=== PATIENT | male | born 2005 | race Two or more races ===

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

== ENCOUNTER 2023-01-15 20:47 | Emergency (ER) | payer MEDICAID ==
[~2023-01-15] VITALS: Ht 180.3 cm; Wt 121.0 kg
[~2023-01-15 20:47] MED LIST changes: +HYDR-4798 PO; +IBUP800T27 PO
[2023-01-15 21:12] VITALS: BP 139/80
[2023-01-15 22:33] LABS: Urine Bacteria FEW /hpf (None Seen); Urine Blood Negative /uL (Negative); Urine Mucus FEW (None Seen); Urine Specific Gravity 1.017 (1.001-1.035); Urine WBC 1 /hpf (0 - 3)
== END 2023-01-16 02:12 | disposition home or self-care (01) ==
LOC: ER 20:51
DX: E86.0 Dehydration (principal); R39.15 Urgency of urination; Z79.1 Long term (current) use of non-steroidal anti-inflammatories (NSAID); Z79.899 Other long term (current) drug therapy
CPT/HCPCS: 81001